=== PATIENT | male | born 1980 | race Caucasian/White ===

== ENCOUNTER 2018-01-24 17:10 | Emergency (ER) | payer MEDICAID ==
[~2018-01-24] VITALS: Ht 185.4 cm; Wt 96.2 kg
[2018-01-24 17:50] VITALS: BP 126/74
[2018-01-24] MEDS ORDERED: CEPH-571 PO (19:34)
== END 2018-01-24 20:07 | disposition home or self-care (01) ==
LOC: ER 17:46
DX: L03.213 Periorbital cellulitis (principal); H00.11 Chalazion right upper eyelid; Z88.5 Allergy status to narcotic agent
CPT/HCPCS: 99284